=== PATIENT | male | born 1945 | race Caucasian/White ===

== ENCOUNTER → 2016-05-25 | Outpatient (CLI) | payer MEDICARE, BC ==
--- NOTE | 2016-05-25 16:45 | US ---
EXAMINATION TYPE: US kidneys/renal and bladder DATE OF EXAM: 05/25/2016 4:32 PM COMPARISON: NONE CLINICAL HISTORY: US. Hydronephrosis, history of kidney stone EXAM MEASUREMENTS: Right Kidney: 12.6 x 6.4 x 5.8cm Left Kidney: 12.6 x 6.4 x 5.0cm ANATOMY: TECHNOLOGIST IMPRESSION: Right Kidney: No evidence of hydronephrosis or mass Left Kidney: No evidence of hydronephrosis or mass Bladder: appears wnl Bilateral Jets seen: yes There is no evidence for hydronephrosis at this point in time. No masses are identified on images s aved. The urinary bladder is anechoic. Bilateral ureteral jets are seen. IMPRESSION: No hydronephrosis is evident bilaterally. Unremarkable study. Normal Values: Renal Length = 9 - 12cm Bladder Wall: < 0.3cm
== END | disposition home or self-care (01) ==
LOC: RADUSWWP 16:12
PROVIDERS: ATTEND Urology
DX: N13.30 Unspecified hydronephrosis (principal)
CPT/HCPCS: 76770

== ENCOUNTER → 2018-12-09 | Outpatient (CLI) | payer MEDICARE ==
--- NOTE | 2018-12-14 14:51 | ECHOS ---
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 Predominant rhythm appears to be sinus with a heart rate ranging from 47 to 95 beats per minute. Average heart rate of 60 beats per minute. Rare isolated PACs and PVCs are noted. There was no evidence of any SVT, VT or bradyarrhythmia. FINAL IMPRESSION: Unremarkable 24 hour DCG with predominant sinus rhythm with average heart rate of 60 beats per minute. No significant symptoms were reported. Rare isolated premature ventricular contractions were noted. MMODL / IJN: [id number] /
== END | disposition home or self-care (01) ==
LOC: RADECHMAIN 12:10
PROVIDERS: ATTEND Family Medicine
DX: I49.3 Ventricular premature depolarization (principal)
CPT/HCPCS: 93225; 93226